=== PATIENT | male | born 1980 | race Caucasian/White ===

== ENCOUNTER 2016-10-12 15:23 | Emergency (ER) | payer OTHER ==
[~2016-10-12] VITALS: Wt 85.0 kg
[2016-10-12] MEDS ORDERED: OLAN15TA3 PO ×2 (16:00→16:01)
[2016-10-12] MEDS ORDERED: FLUO20CA38 PO (16:00)
--- NOTE | 2016-10-12 16:47 | ERD ---
ER Documentation Chief Complaint Date/Time DATE: 10/12/16 TIME: 16:32 Chief Complaint HERE FOR MEDICATION REFILL ON PSYCH MEDS. NO DISTRESS OR IDEATIONS HPI Patient is a 36-year-old male with a past medical history of bipolar and depression who presents to the ED with medication refill on Zyprexa and Prozac. He states that he ran out of his medications 2 weeks ago. He states that he called his psychiatrist and a clinic and they stated that they were unavailable for an appointment and he stated that is why he came to the ER for medication refill. He states that he has been on Prozac for over a year and Zyprexa for a couple months. He has no complaints today. He denies suicidal ideations or suicide plan. He denies hurting himself or hurting others. He denies hallucinations visual or auditory or homicidal ideations. Denies chest pain, cough, shortness of breath or difficulty breathing.. States that he is not using any IV or other drugs. States that last use of meth and marijuana was in August. Denies alcohol use. No other symptoms today. ROS All systems reviewed and are negative except as per history of present illness. Medications Home Meds Active Scripts Olanzapine* (Zyprexa*) 15 Mg Tablet, 10 MG PO DAILY, #30 TAB Prov:JANETTE ACOSTA PA-C 10/12/16 Fluoxetine Hcl* (Prozac*) 20 Mg Capsule, 20 MG PO DAILY for 30 Days, CAP Prov:JANETTE ACOSTA PA-C 10/12/16 Allergies Allergies: Coded Allergies: No Known Drug Allergy (Verified Allergy, Mild, 07/27/16) PMhx/Soc History of Surgery: No Anesthesia Reaction: No Hx Neurological Disorder: No Hx Respiratory Disorders: No Hx Cardiac Disorders: No Hx Psychiatric Problems: Yes (Bipolar, depression) Hx Miscellaneous Medical Probl: Yes (depression ) Hx Alcohol Use: Yes Hx Substance Use: Yes (Past history of meth) Hx Tobacco Use: Yes (Half a pack a day) Smoking Status: Current every day smoker Physical Exam Vitals Vital Signs Date Time Temp Pulse Resp B/P Pulse Ox O2 Delivery O2 Flow Rate FiO2 10/12/16 15:28 98.0 85 20 134/78 100 Physical Exam GENERAL: Well-developed, well-nourished male. Appears in no acute distress. HEAD: Normocephalic, atraumatic. EYES: Pupils are equally reactive bilaterally. EOMs grossly intact. No conjunctival erythema. ENT: Moist mucous membranes. No uvula deviation. No kissing tonsils. No exudates. NECK: Supple. No lymphadenopathy or thyromegaly. No meningismus. negative kernig. negative brudinski. LUNG: Clear to auscultation bilaterally. No rhonchi, wheezing, rales or coarse breath sounds. HEART: Regular rate and rhythm. No murmurs, rubs or gallops. NEUROLOGIC: Alert and oriented. Moving all four extremities. 5/5 strength in all extremities. Normal speech. Steady gait. SKIN: Normal color. Warm and dry. No rashes or lesions. Capillary refill < 2 seconds Procedures/MDM ER COURSE: I kept the patient and/or family informed of laboratory and diagnostic imaging results throughout the emergency room course. MEDICAL DECISION MAKING: This is a 36 year old male with a history of bipolar and depression who presents with medication refill . Vital signs were reviewed. Patient is afebrile. Patient is not hypoxic. I consulted with Dr. Nuñez regarding this patient who agrees with plan and can be treated outpatiently. Patient does not have suicidal ideations or plan. I have low suspicion for suicide, sepsis, or other emergent conditions, psychosis, drug-induced psychosis, decompensated psychiatric illness. Low suspicion for ACS, PE, AAA, dissection, DVT DISCHARGE: At this time, patient is stable for discharge and outpatient management with no new complaints during the ER course. Patient was sent home with refill for zyprexa and prozac. Patient will be discharged home with instructions to recheck for new or worsening symptoms such as fever, nausea, weakness, LOC and to follow up with primary care in the next 1-2 days. Patient was advised to return to the ER for any new or worsening symptoms. Plan was discussed and patient and/or family understands and agrees. Home instructions were given. Departure Diagnosis: Primary Impression: Encounter for medication refill Condition: Stable Patient Instructions: Taking Medicine Safely Referrals: NO PRIMARY,CARE PHYSICIAN Additional Instructions: Call your primary care doctor TOMORROW for an appointment during the next 1-2 days.See the doctor sooner or return here if your condition worsens before your appointment time. follow up with your psychiatrist for further evaluation. JANETTE ACOSTA PA-C Oct 12, 2016 16:42
== END 2016-10-12 16:05 | disposition home or self-care (01) ==
LOC: FTE 15:23
DX: Z76.0 Encounter for issue of repeat prescription (principal); F17.210 Nicotine dependence, cigarettes, uncomplicated
CPT/HCPCS: 99281

== ENCOUNTER → 2016-10-12 | Emergency (ER) | payer SELFPAY ==
[~2016-10-12] VITALS: Wt 80.0 kg
[~2016-10-12] MED LIST: FLUO20CA38 PO; OLAN15TA3 PO
== END | disposition left against medical advice (07) ==
LOC: FTE 11:57
DX: Z53.21 Procedure and treatment not carried out due to patient leaving prior to being seen by health care provider (principal)

== ENCOUNTER 2016-12-29 00:07 | Emergency (ER) | payer OTHER ==
[~2016-12-29] VITALS: Ht 185.4 cm; Wt 88.6 kg
[2016-12-29 00:17] VITALS: Ht 185.4 cm; Wt 88.6 kg
[2016-12-29] MEDS ORDERED: OLAN15TA3 PO (06:18)
[2016-12-29] MEDS ORDERED: FLUO20CA38 PO (06:18)
--- NOTE | 2016-12-29 08:41 | ERD ---
ER Documentation Chief Complaint Date/Time DATE: 12/29/16 TIME: 08:41 Chief Complaint MED REFILL ON ZYPREXA 15MG AND PROZAC HPI Patient is a 36-year-old male with a past medical history of bipolar and depression who presents to the ED asking for medication refill for Zyprexa and Prozac. Patient states that he has been on Zyprexa for many years and Prozac started on August. Patient states that he is unable to follow-up with his psychiatrist or primary care physician at this time he is working on it. Patient states that he ran out of his medication for Prozac 2 days ago. He denies any anxiety, suicidal ideation, homicidal ideation, chest pain or shortness of breath. He denies any drug use at this time. ROS All systems reviewed and are negative except as per history of present illness. Medications Home Meds Active Scripts Fluoxetine Hcl* (Prozac*) 20 Mg Capsule, 20 MG PO DAILY, #30 CAP Prov:FLASH SPARKS PA-C 12/29/16 Olanzapine* (Zyprexa*) 15 Mg Tablet, 15 MG PO DAILY, #30 TAB Prov:FLASH SPARKS PA-C 12/29/16 Olanzapine* (Zyprexa*) 15 Mg Tablet, 10 MG PO DAILY, #30 TAB Prov:JANETTE ACOSTA PA-C 10/12/16 Fluoxetine Hcl* (Prozac*) 20 Mg Capsule, 20 MG PO DAILY for 30 Days, CAP Prov:JANETTE ACOSTA PA-C 10/12/16 Allergies Allergies: Coded Allergies: No Known Drug Allergy (Verified Allergy, Mild, 12/29/16) PMhx/Soc History of Surgery: No (gall stones, ?choleocystectomy) Anesthesia Reaction: No Hx Neurological Disorder: No Hx Respiratory Disorders: No Hx Cardiac Disorders: No Hx Psychiatric Problems: Yes (Bipolar, depression) Hx Miscellaneous Medical Probl: Yes (depression ) Hx Alcohol Use: Yes (socially) Hx Substance Use: Yes (Past history of meth, marijuana) Hx Tobacco Use: Yes (Half a pack a day) Smoking Status: Current every day smoker Physical Exam Vitals Vital Signs Date Time Temp Pulse Resp B/P Pulse Ox O2 Delivery O2 Flow Rate FiO2 12/29/16 00:17 98.0 81 20 147/82 98 Physical Exam GENERAL: WD/WN, in no apparent distress, non-toxic appearing HENT: NC/AT EYES: Conjunctiva normal NECK: Supple. No meningeal signs PULM: Clear to auscultation bilaterally. Normal labored breathing CV: Regular rate and rhythm, no murmurs GI: Soft, non tender, non distended. Normal bowel sounds BACK: No masses EXT: No clubbing, cyanosis, or edema. NEURO: Awake and Alert SKIN: No petechiae or rashes PSYCH: Normal mood Procedures/MDM Patient is a 36-year-old male with a past medical history of bipolar and depression who presents to the ED asking for medication refill for Zyprexa and Prozac. Patient is unable to follow-up with his primary care physician or psychiatrist at this time. On examination patient did not exhibit any significant serotonin withdrawal symptoms, he has stable vital signs and he stable for discharge for home to follow-up with his primary care physician and psychiatrist as soon as he can. Prescription for Zyprexa 50 mg every day was refilled and Prozac 20 mg every day. Patient stable for discharge her home with precautions to return to the ER for any worsening symptoms. I have given him a lengthy discussion on the importance of following up with his physician. He understands and agrees with Departure Diagnosis: Primary Impression: Encounter for medication refill Additional Impression: Psychological disorder Condition: Stable Patient Instructions: Taking Medicine Safely Referrals: DOCTOR,NOT ON STAFF [facility]ENT C[facility]/SPECIALTIES Additional Instructions: FOLLOW UP WITH YOUR PRIMARY CARE PHYSICIAN TOMORROW.Return to this facility if you are not improving as expected. Take all medicines as directed. Return to this facility if you are not improving as expected. FLASH SPARKS PA-C December 29, 2016 08:41
== END 2016-12-29 06:33 | disposition home or self-care (01) ==
LOC: FTE 00:07
DX: Z76.0 Encounter for issue of repeat prescription (principal); F17.210 Nicotine dependence, cigarettes, uncomplicated; F99 Mental disorder, not otherwise specified
CPT/HCPCS: 99281

== ENCOUNTER 2017-03-26 23:58 | Emergency (ER) | payer OTHER ==
[~2017-03-26] VITALS: Ht 185.4 cm; Wt 85.0 kg
[2017-03-27 00:18] VITALS: Ht 185.4 cm; Wt 85.0 kg
[2017-03-27] MEDS ORDERED: OLANZAPINE (ODT) 5 MG TAB PO STA (01:06)
--- NOTE | 2017-03-27 01:26 | ERD ---
ER Documentation Chief Complaint Date/Time DATE: 03/27/17 TIME: 01:24 Chief Complaint BIBRA with [employer] for psych eval and possible 5150. HPI Patient is a 36-year-old male with history of bipolar disorder brought to the ER by police after having altercation with his mother. He was agitated and required restraint by police. The patient reports that he has been off of his medication for an unknown period of time. He states that he uses methamphetamine and cocaine at times, but denies recent use. He states that he is intermittently suicidal and homicidal. He denies hearing voices. He denies alcohol use or ingestion of medications today. He denies suicidal plan. ROS All systems reviewed and are negative except as per history of present illness. Medications Home Meds Discontinued Scripts Fluoxetine Hcl* (Prozac*) 20 Mg Capsule, 20 MG PO DAILY, #30 CAP Prov:FLASH SPARKS-C 12/29/16 Olanzapine* (Zyprexa*) 15 Mg Tablet, 15 MG PO DAILY, #30 TAB Prov:FLASH SPARKS-C 12/29/16 Olanzapine* (Zyprexa*) 15 Mg Tablet, 10 MG PO DAILY, #30 TAB Prov:JANETTE ACOSTA PA-C 10/12/16 Fluoxetine Hcl* (Prozac*) 20 Mg Capsule, 20 MG PO DAILY for 30 Days, CAP Prov:JANETTE ACOSTA PA-C 10/12/16 Allergies Allergies: Coded Allergies: No Known Drug Allergy (Unverified Allergy, Mild, 03/27/17) PMhx/Soc Past medical history: Bipolar disorder Past surgical history: Cholecystectomy Social history: Occasional methamphetamine use, smokes cigarettes, denies alcohol History of Surgery: No (gall stones, ?choleocystectomy) Anesthesia Reaction: No Hx Neurological Disorder: No Hx Respiratory Disorders: No Hx Cardiac Disorders: No Hx Psychiatric Problems: Yes (Bipolar, depression) Hx Miscellaneous Medical Probl: Yes (Psych) Hx Alcohol Use: Yes Hx Substance Use: Yes Hx Tobacco Use: Yes Smoking Status: Current some day smoker FmHx Family History: No coronary disease, No diabetes Physical Exam Vitals Vital Signs Date Time Temp Pulse Resp B/P Pulse Ox O2 Delivery O2 Flow Rate FiO2 03/27/17 05:00 70 16 110/63 97 Room Air 03/27/17 02:32 98.2 68 18 131/77 99 Room Air 03/27/17 00:18 98.6 65 18 137/78 99 Physical Exam Const: Alert, poorly communicative Head: Atraumatic Eyes: Normal Conjunctiva, no pallor, no icterus, no nystagmus ENT: Normal External Ears, Nose and Mouth. Mucous membranes moist Neck: Full range of motion..~ No meningismus. Resp: Clear to auscultation bilaterally Cardio: Regular rate and rhythm, no murmurs Abd: Soft, non tender, non distended. Normal bowel sounds Skin: No petechiae or rashes Back: No midline or flank tenderness Ext: No cyanosis, or edema Neur: Awake and alert, cranial nerves II through XII intact bilaterally, strength and sensation full in 4 extremities. Psych: Poor eye contact, poorly communicative, gives vague responses, calm Result Diagram: 03/27/173903/27/17 0040 Results 24 hrs Laboratory Tests Test 03/27/17 00:40 White Blood Count 9.210^3/ul Red Blood Count 5.0210^6/ul Hemoglobin 15.7g/dl Hematocrit 45.3% Mean Corpuscular Volume 90.2fl Mean Corpuscular Hemoglobin 31.3pg Mean Corpuscular Hemoglobin Concent 34.7g/dl Red Cell Distribution Width 12.1% Platelet Count 39051^3/UL Mean Platelet Volume 10.9fl Neutrophils % 53.2% Lymphocytes % 34.6% Monocytes % 8.6% Eosinophils % 2.6% Basophils % 0.7% Nucleated Red Blood Cells % 0.0/100WBC Neutrophils # (Manual) 510^3/ul Lymphocytes # 3.210^3/ul Monocytes # 0.810^3/ul Eosinophils # 0.210^3/ul Basophils # 0.110^3/ul Nucleated Red Blood Cells # 0.010^3/ul Sodium Level 140mmol/L Potassium Level 4.9mmol/L Chloride Level 107mmol/L Carbon Dioxide Level 21mmol/L Anion Gap 17 Blood Urea Nitrogen 14mg/dl Creatinine 0.93mg/dl Glucose Level 89mg/dl Calcium Level 9.4mg/dl Total Bilirubin 0.5mg/dl Direct Bilirubin 0.00mg/dl Indirect Bilirubin 0.5mg/dl Aspartate Amino Transf (AST/SGOT) 48IU/L Alanine Aminotransferase (ALT/SGPT) 40IU/L Alkaline Phosphatase 107IU/L Total Protein 7.7g/dl Albumin 4.6g/dl Globulin 3.10g/dl Albumin/Globulin Ratio 1.48 Salicylates Level < 1.0mg/dl Acetaminophen Level < 10.0ug/ml Ethyl Alcohol Level < 10.0mg/dl Current Medications Medications (Trade) Dose Ordered Sig/Felipa Route PRN Reason Start Time Stop Time Status Last Admin Dose Admin Olanzapine (Zyprexa Zydis) 10 mg ONCE STAT PO 03/27/17 01:06 03/27/17 01:08 DC 03/27/17 01:32 Calcium Carbonate 750 mg 750 mg ONCE ONCE PO 03/27/17 02:00 03/27/17 02:09 DC 03/27/17 02:16 Sodium Chloride (NS) 1,000 ml @ 1,000 mls/hr Q1H ONCE IV 03/27/17 05:30 03/27/17 06:29 DC 03/27/17 05:16 Procedures/MDM MDM: Patient is a 36-year-old male with bipolar disorder who has not been on medication and presents to the ER with agitation and signs of psychosis. He also reports suicidal ideation. There is no evidence of toxic ingestion. The patient has not yet provided urine for drug screen, but is medically cleared for psychiatric evaluation. He was given Zyprexa and remained calm overnight in the ER. Departure Diagnosis: Primary Impression: Bipolar disorder Active/Remission status: remission status unspecified Qualified Code: F31.9 - Bipolar affective disorder, remission status unspecified Additional Impression: Agitation Condition: DAREN Soriano MD Mar 27, 2017 01:26
[2017-03-27 01:36] LABS: BASOPHIL # 0.1 10^3/ul (0.0-0.1); BASOPHILS % 0.7 % (0.0-2.0); EOSINOPHILS # 0.2 10^3/ul (0.0-0.5); EOSINOPHILS % 2.6 % (0.0-7.0); HEMATOCRIT 45.3 % (42.0-52.0); HEMOGLOBIN 15.7 g/dl (14.0-18.0); LYMPHOCYTES # 3.2 10^3/ul (0.8-2.9); LYMPHOCYTES % 34.6 % (15.0-51.0); MEAN CORPUSCULAR HEMOGLOBIN 31.3 pg (29.0-33.0); MEAN CORPUSCULAR HGB CONC 34.7 g/dl (32.0-37.0); MEAN CORPUSCULAR VOLUME 90.2 fl (82.0-101.0); MONOCYTE # 0.8 10^3/ul (0.3-0.9); MONOCYTES % 8.6 % (0.0-11.0); NEUTROPHILS % 53.2 % (39.0-77.0); PLATELET COUNT 303 10^3/UL (140-415); RED BLOOD COUNT 5.02 10^6/ul (4.70-6.10); RED CELL DISTRIBUTION WIDTH 12.1 % (11.5-14.5); WHITE BLOOD COUNT 9.2 10^3/ul (4.8-10.8)
[2017-03-27 01:41] LABS: ALANINE AMINOTRANSFERASE 40 IU/L (13-69); ALBUMIN 4.6 g/dl (3.3-4.9); ALBUMIN/GLOBULIN RATIO 1.48; ALKALINE PHOSPHATASE 107 IU/L (42-121); ANION GAP 17 (8-16); ASPARTATE AMINO TRANSFERASE 48 IU/L (15-46); BILIRUBIN,INDIRECT 0.5 mg/dl (0-1.1); BILIRUBIN,TOTAL 0.5 mg/dl (0.2-1.3); BLOOD UREA NITROGEN 14 mg/dl (7-20); CALCIUM 9.4 mg/dl (8.4-10.2); CARBON DIOXIDE 21 mmol/L (21-31); CHLORIDE 107 mmol/L (97-110); CREATININE 0.93 mg/dl (0.61-1.24); GLUCOSE 89 mg/dl (70-220); POTASSIUM 4.9 mmol/L (3.5-5.1); SODIUM 140 mmol/L (135-144); TOTAL PROTEIN 7.7 g/dl (6.1-8.1)
[2017-03-27 01:42] LABS: ACETAMINOPHEN < 10.0 ug/ml (10.0-30.0)
[2017-03-27 01:43] LABS: ETHANOL < 10.0 mg/dl; SALICYLATE < 1.0 mg/dl (5.0-30.0)
[2017-03-27 01:49] LABS: MEAN PLATELET VOLUME 10.9 fl (7.4-10.4)
[2017-03-27] MEDS ORDERED: CALCIUM CARBONATE 750 MG CHEW TAB PO ONE (02:00)
[2017-03-27] MEDS ORDERED: SOD CHLORIDE 0.9% 1,000 ML IV ONE (05:30)
--- NOTE | 2017-03-27 07:59 | EN ---
Date/Time of Note Date/Time of Note DATE: 03/27/17 TIME: 07:58 ER Progress Note Observation Note: Time: [XOXOXO] hours Family Hx: No Hypertension Evaluation: Multiple exams showed improving symptoms and no evidence of [ XOXOXO] HERMINIO DEAN MD Mar 27, 2017 07:59
[2017-03-27 08:33] LABS: ADD UMIC NO; UR ASCORBIC ACID 20 mg/dL (NEGATIVE); UR BILIRUBIN (Dip) NEGATIVE (NEGATIVE); UR BLOOD (Dip) NEGATIVE (NEGATIVE); UR CLARITY CLEAR (CLEAR); UR COLOR YELLOW (YELLOW); UR GLUCOSE (Dip) NEGATIVE (NEGATIVE); UR KETONES (Dip) TRACE mg/dL (NEGATIVE); UR LEUKOCYTE ESTERASE (Dip) NEGATIVE Leu/ul (NEGATIVE); UR NITRITE (Dip) NEGATIVE (NEGATIVE); UR SPECIFIC GRAVITY (Dip) 1.019 (1.003-1.030); UR TOTAL PROTEIN (Dip) NEGATIVE (NEGATIVE); UR UROBILINOGEN (Dip) 1+ mg/dL (NEGATIVE)
[2017-03-27 08:57] LABS: CANNABINOIDS Negative (NEGATIVE)
[2017-03-27 09:00] LABS: BARBITURATES Negative (NEGATIVE); BENZODIAZEPINES Negative (NEGATIVE); COCAINE Negative (NEGATIVE); OPIATES Negative (NEGATIVE)
--- NOTE | 2017-03-27 14:59 | PSY ---
Date/Time of Note Date/Time of Note DATE: 03/27/17 TIME: 14:54 Psychiatric Subjective Eval Consent Pt consented to telemedicine: Yes Subjective Evaluation Patient location: emergency Chief Complaint: BIBRA with [employer] for psych eval and possible 5149. History of present illness Pt is 36 yo disabled male with hx schizoaffecetiv ed/o BIB police on 5150 because of a agitaiton and threatening bhx at home. Pt is a poor historian; he sas he is in ED because "they called ambulance" . He is not able to say, who are "they". he admits he was angry and started thowing things at his mother. he denies to me Si or HI, he denies AH or VH but he does appear internally preoccupied. he was on Zyprexa, but stopped his meds a month ago. He reprots insomnia and anxiety. He reprots feeling paranoid and unsafe. Past psychiatric history last inpt was 3 months for agitaiton Hospitalization: yes Family History denies Medical history Problems Medical Problems: (1) Agitation Status: Acute (2) Bipolar disorder Status: Acute (3) Depression Status: Acute (4) Encounter for medication refill Status: Acute (5) Encounter for medication refill Status: Acute (6) Psychological disorder Status: Acute (7) Psychosis Status: Acute (8) Substance abuse Status: Acute (9) Suicidal ideation Status: Acute Allergies: Coded Allergies: No Known Drug Allergy (Unverified Allergy, Mild, 03/27/17) Substance Abuse Substance use: No known substance abuse Social History Marital status: single Level of education: 9th grade DPA/Conservatorship: No Occupation/Snf: unemployed, lives with mother Psychiatric Objective Eval Mental Status Examination: Appearance: Disheveled Eye Contact: Poor Psychomotor Activity: Normal Behavior: Cooperative Speech: Clear AFFECT: Constricted Mood: Irritable Though Process: Circumstantial Thought Content: Delusions Suicidal: No Homicidal: No On 72 hour hold: No Orientation: x3 Cognition: Alert Insight: Impared Judgement: Impared Laboratory Results Laboratory Tests Test 03/27/17 00:40 03/27/17 08:05 White Blood Count 9.210^3/ul Red Blood Count 5.0210^6/ul Hemoglobin 15.7g/dl Hematocrit 45.3% Mean Corpuscular Volume 90.2fl Mean Corpuscular Hemoglobin 31.3pg Mean Corpuscular Hemoglobin Concent 34.7g/dl Red Cell Distribution Width 12.1% Platelet Count 67865^3/UL Mean Platelet Volume 10.9fl Neutrophils % 53.2% Lymphocytes % 34.6% Monocytes % 8.6% Eosinophils % 2.6% Basophils % 0.7% Nucleated Red Blood Cells % 0.0/100WBC Neutrophils # (Manual) 510^3/ul Lymphocytes # 3.210^3/ul Monocytes # 0.810^3/ul Eosinophils # 0.210^3/ul Basophils # 0.110^3/ul Nucleated Red Blood Cells # 0.010^3/ul Sodium Level 140mmol/L Potassium Level 4.9mmol/L Chloride Level 107mmol/L Carbon Dioxide Level 21mmol/L Anion Gap 17 Blood Urea Nitrogen 14mg/dl Creatinine 0.93mg/dl Glucose Level 89mg/dl Calcium Level 9.4mg/dl Total Bilirubin 0.5mg/dl Direct Bilirubin 0.00mg/dl Indirect Bilirubin 0.5mg/dl Aspartate Amino Transf (AST/SGOT) 48IU/L Alanine Aminotransferase (ALT/SGPT) 40IU/L Alkaline Phosphatase 107IU/L Total Protein 7.7g/dl Albumin 4.6g/dl Globulin 3.10g/dl Albumin/Globulin Ratio 1.48 Salicylates Level < 1.0mg/dl Acetaminophen Level < 10.0ug/ml Ethyl Alcohol Level < 10.0mg/dl Urine Color YELLOW Urine Clarity CLEAR Urine pH 5.0 Urine Specific [place] 1.019 Urine Ketones TRACEmg/dL Urine Nitrite NEGATIVEmg/dL Urine Bilirubin NEGATIVEmg/dL Urine Urobilinogen 1+mg/dL Urine Leukocyte Esterase NEGATIVELeu/ul Urine Hemoglobin NEGATIVEmg/dL Urine Glucose NEGATIVEmg/dL Urine Total Protein NEGATIVEmg/dl Urine Opiates Screen Negative Urine Barbiturates Negative Urine Amphetamines Screen Negative Urine Benzodiazepines Screen Negative Urine Cocaine Screen Negative Urine Cannabinoids Negative Assessment and Plan Assessment/Diagnosis [place] I: SCHIZOAFFECTIVE D/O [place] II: DEFERED [place] III: NAD [place] IV: MODERATE [place] V: GAF 25 Recommendation/Plan Medication Management D/W ED 7540 FOR DTO; TRANSFER TO INPT PSYCH. Psychotherapy DEFER TO INPT Follow-up/Disposition TRANSFER TO INPT. ZYPREXA ZYDIS 10 MG PO PRN Q 8 HRS AGITAITON+ BEANDRYL 50 MG PO PRN Q 8 HRS AGITAITON, EPS. 5150 Recommendation: Place JUDITH Worley MD Mar 27, 2017 14:59
[2017-03-27] MEDS ORDERED: OLAN5TAB5 PO (15:28)
--- NOTE | 2017-03-27 15:28 | QN ---
Documentation Comment This patient was evaluated by our psychiatric weaver [facility] [employer] who states this patient does not meet for help. The patient was discharged home with a prescription for Zyprexa 10 mg daily. The patient is denying homicidal suicidal ideation at this time NEAL WRIGHT DO Mar 27, 2017 15:28
[2017-03-27 15:40] VITALS: BP 118/65; PULSE 72; RESP 16; TEMP 98.1
== END 2017-03-27 15:40 | disposition home or self-care (01) ==
LOC: E/R 23:58
DX: F31.9 Bipolar disorder, unspecified (principal); F17.210 Nicotine dependence, cigarettes, uncomplicated; R40.2142 Coma scale, eyes open, spontaneous, at arrival to emergency department; R40.2252 Coma scale, best verbal response, oriented, at arrival to emergency department; R40.2362 Coma scale, best motor response, obeys commands, at arrival to emergency department
CPT/HCPCS: 36415; 80053; 80306; 80307; 81003; 85025; 96360; J7030; Z7502; Z7610

== ENCOUNTER 2017-07-07 20:40 | Emergency (ER) | payer OTHER ==
[~2017-07-07] VITALS: Ht 185.4 cm; Wt 90.9 kg
[~2017-07-07 20:40] MED LIST changes: -FLUO20CA38 PO; -OLAN15TA3 PO; +OLAN5TAB5 PO
[2017-07-07 20:44] VITALS: Ht 185.4 cm; Wt 90.9 kg
[2017-07-07] MEDS ORDERED: LORAZEPAM 2 MG INJ IM STA (20:44)
[2017-07-07] MEDS ORDERED: HALOPERIDOL 5 MG INJ IM ONE (21:00)
[2017-07-07 22:02] LABS: BASOPHIL # 0.1 10^3/ul (0.0-0.1); BASOPHILS % 0.5 % (0.0-2.0); EOSINOPHILS # 0.1 10^3/ul (0.0-0.5); EOSINOPHILS % 0.8 % (0.0-7.0); HEMATOCRIT 43.1 % (42.0-52.0); HEMOGLOBIN 15.2 g/dl (14.0-18.0); LYMPHOCYTES # 2.1 10^3/ul (0.8-2.9); LYMPHOCYTES % 16.6 % (15.0-51.0); MEAN CORPUSCULAR HGB CONC 35.3 g/dl (32.0-37.0); MEAN PLATELET VOLUME 8.6 fl (7.4-10.4); MONOCYTES % 8.1 % (0.0-11.0); NEUTROPHILS % 73.1 % (39.0-77.0); PLATELET COUNT 383 10^3/UL (140-415); RED CELL DISTRIBUTION WIDTH 12.3 % (11.5-14.5); WHITE BLOOD COUNT 12.4 10^3/ul (4.8-10.8)
[2017-07-07 22:29] LABS: ACETAMINOPHEN < 10.0 ug/ml (10.0-30.0); ALANINE AMINOTRANSFERASE 41 IU/L (13-69); ALBUMIN 4.6 g/dl (3.3-4.9); ALBUMIN/GLOBULIN RATIO 1.53; ALKALINE PHOSPHATASE 89 IU/L (42-121); ANION GAP 18 (8-16); ASPARTATE AMINO TRANSFERASE 26 IU/L (15-46); BILIRUBIN,INDIRECT 0.3 mg/dl (0-1.1); BILIRUBIN,TOTAL 0.3 mg/dl (0.2-1.3); BLOOD UREA NITROGEN 10 mg/dl (7-20); CALCIUM 9.8 mg/dl (8.4-10.2); CARBON DIOXIDE 24 mmol/L (21-31); CHLORIDE 104 mmol/L (97-110); CREATININE 0.95 mg/dl (0.61-1.24); ETHANOL < 10.0 mg/dl; GLUCOSE 99 mg/dl (70-220); POTASSIUM 4.4 mmol/L (3.5-5.1); SALICYLATE < 1.0 mg/dl (5.0-30.0); SODIUM 142 mmol/L (135-144); TOTAL PROTEIN 7.6 g/dl (6.1-8.1)
--- NOTE | 2017-07-07 23:19 | ERD ---
ER Documentation Chief Complaint Chief Complaint BIBA RA881 HPI This is a 37-year-old male with history of depression, and schizophrenia who presents to the emergency room after being brought in by ambulance for evaluation of agitation. The patient states that he did get an argument with his mother and states that he is feeling extremely agitated. He is not answering whether or not he is suicidal at this time. He is yelling in a detailed history is unobtainable from this patient given his agitation at this time ROS All systems reviewed and are negative except as per history of present illness. Medications Home Meds Discontinued Scripts Olanzapine* (Zyprexa*) 5 Mg Tablet, 5 MG PO DAILY, #14 TAB Prov:NEAL WRIGHT 03/27/17 Allergies Allergies: Coded Allergies: No Known Drug Allergy (Unverified Allergy, Mild, 07/07/17) PMhx/Soc History of Surgery: No (gall stones, ?choleocystectomy) Anesthesia Reaction: No Hx Neurological Disorder: No Hx Respiratory Disorders: No Hx Cardiac Disorders: No Hx Psychiatric Problems: Yes (Bipolar, depression) Hx Miscellaneous Medical Probl: Yes (Psych) Hx Alcohol Use: Yes Hx Substance Use: Yes Hx Tobacco Use: Yes Physical Exam Vitals Vital Signs Date Time Temp Pulse Resp B/P Pulse Ox O2 Delivery O2 Flow Rate FiO2 07/07/17 20:44 97.5 86 18 144/98 95 Physical Exam INITIAL VITAL SIGNS: Reviewed by me GENERAL: The patient is well developed, yelling in the emergency room HEENT: Pupils equal, round, and reactive to light. EOMI. There is no scleral icterus. NECK: C-spine is soft and supple, there is no meningismus. There is no cervical lymphadenopathy. LUNGS: Clear to auscultation bilaterally. There are no rales, wheezes or rhonchi. HEART: Regular rate and rhythm, no murmurs, clicks, rubs or gallops. ABDOMEN: Soft, non-tender, non-distended. There are bowel sounds in all four quadrants. No rebound or guarding. EXTREMITIES: There is no peripheral cyanosis or edema. No focal swelling or erythema. NEUROLOGICAL: The patient moves all four extremities with 5/5 strength. Cranial nerves II - XII are intact. Normal gait. Alert and oriented SKIN: There is no apparent rash or petechiae. HEME/LYMPHATIC: There is no evidence of excessive bruising or lymphedema. PSYCHIATRIC: The patient is to be extremely agitated Result Diagram: 07/07/17215107/07/172151 Results 24 hrs Laboratory Tests Test 07/07/17 21:52 White Blood Count 12.410^3/ul Red Blood Count 4.9010^6/ul Hemoglobin 15.2g/dl Hematocrit 43.1% Mean Corpuscular Volume 88.0fl Mean Corpuscular Hemoglobin 31.0pg Mean Corpuscular Hemoglobin Concent 35.3g/dl Red Cell Distribution Width 12.3% Platelet Count 48527^3/UL Mean Platelet Volume 8.6fl Neutrophils % 73.1% Lymphocytes % 16.6% Monocytes % 8.1% Eosinophils % 0.8% Basophils % 0.5% Nucleated Red Blood Cells % 0.0/100WBC Neutrophils # 9.010^3/ul Lymphocytes # 2.110^3/ul Monocytes # 1.010^3/ul Eosinophils # 0.110^3/ul Basophils # 0.110^3/ul Nucleated Red Blood Cells # 0.010^3/ul Sodium Level 142mmol/L Potassium Level 4.4mmol/L Chloride Level 104mmol/L Carbon Dioxide Level 24mmol/L Anion Gap 18 Blood Urea Nitrogen 10mg/dl Creatinine 0.95mg/dl Glucose Level 99mg/dl Calcium Level 9.8mg/dl Total Bilirubin 0.3mg/dl Direct Bilirubin 0.00mg/dl Indirect Bilirubin 0.3mg/dl Aspartate Amino Transf (AST/SGOT) 26IU/L Alanine Aminotransferase (ALT/SGPT) 41IU/L Alkaline Phosphatase 89IU/L Total Protein 7.6g/dl Albumin 4.6g/dl Globulin 3.00g/dl Albumin/Globulin Ratio 1.53 Salicylates Level < 1.0mg/dl Acetaminophen Level < 10.0ug/ml Ethyl Alcohol Level < 10.0mg/dl Current Medications Medications (Trade) Dose Ordered Sig/Felipa Route PRN Reason Start Time Stop Time Status Last Admin Dose Admin Lorazepam (Ativan) 2 mg ONCE STAT IM 07/07/17 20:44 07/07/17 20:47 DC 07/07/17 21:07 Haloperidol (Haldol) 5 mg ONCE ONCE IM 07/07/17 21:00 07/07/17 21:01 DC 07/07/17 21:07 Procedures/MDM This 37-year-old male presents to the ER for evaluation of agitation. He does have a history of schizophrenia and depression. He was not cooperative and had to be chemically sedated with Haldol and Ativan. This patient's lab work is within normal limits at this time. He will be evaluated by tele-psych physician when he is arousable to determine whether or not this patient needs inpatient psychiatric evaluation. Departure Diagnosis: Primary Impression: Agitation Additional Impression: Psychological disorder Condition: Stable NEAL WRIGHT DO Jul 07, 2017 23:19
--- NOTE | 2017-07-08 05:25 | EN ---
Date/Time of Note Date/Time of Note DATE: 07/08/17 TIME: 05:23 ER Progress Note Indication: Agitation Duration: 4 hr Family History: As documented in the original HPI The patient was observed with serial exams over the above timeframe. The patient continued to be well-appearing and observation continued without complication. All other needs have been met during emergency department stay. The patient is medically cleared for psychiatric evaluation CHELLE LEIJA MD Jul 08, 2017 05:25
[2017-07-08 05:34] VITALS: BP 128/78; PULSE 87; RESP 18; TEMP 98.7
--- NOTE | 2017-07-08 06:41 | PSY ---
Date/Time of Note Date/Time of Note DATE: 07/08/17 TIME: 06:23 Psychiatric Subjective Eval Consent Pt consented to telemedicine: Yes Subjective Evaluation Patient location: emergency Chief Complaint: PATEL LUGO Reason for consult: agitated History of present illness patient is a 37 yo male with PPH Of schizophrenia and methamphetamine abuse who came to the ER brought in by RA due to being agitated at home due to having a argument with his mother, he states that he was discharged from the psychiatric unit 2 days ago where he was admitted for agitated behavior, he states that he was having a argument with his mother because she"is a old lady and she does not understand me ", i tried to talk to her on the phone to know more about what happened at home and to know if she felt safe to have him home but she did not answer the phone ([phone]) he states that he does not want to argue with her anymore and he wants to go home but he understands that we have to call her first to find out if she is ok with him going home. he denies any current si or hi, no current hallucination or delusion, he states that he got drunk 2 days ago and used methamphetamine. he has been feeling depressed and anxious, with problem sleeping and did not take his medication for the past 2 days. Past psychiatric history no past suicidal attempt Family History denies Medical history Problems Medical Problems: (1) Agitation Status: Acute (2) Bipolar disorder Status: Acute (3) Depression Status: Acute (4) Encounter for medication refill Status: Acute (5) Encounter for medication refill Status: Acute (6) Psychological disorder Status: Acute (7) Psychosis Status: Acute (8) Substance abuse Status: Acute (9) Suicidal ideation Status: Acute Allergies: Coded Allergies: No Known Drug Allergy (Unverified Allergy, Mild, 07/07/17) Substance Abuse Substance abuse history: Yes (methamphetamine ) Prior substance abuse treatmen: No Social History Marital status: single Level of education: hs DPA/Conservatorship: No Occupation/Mcfp: no Psychiatric Objective Eval Review of Systems: Review of Systems: Not Applicable Physical Examination: Physical Examination: Applicable Sleep: Insomnia Appetite: Decreased Energy: Decreased Interest: Decreased Mental Status Examination: Appearance: Disheveled Eye Contact: Fair Psychomotor Activity: Normal Behavior: Cooperative Speech: Clear AFFECT: Appropriate Mood: Irritable Though Process: Linear Thought Content: Normal Suicidal: No Homicidal: No On 72 hour hold: No Orientation: x3 Cognition: Alert Insight: Mild Judgement: Mild Attention Span: Intact Laboratory Results Laboratory Tests Test 07/07/17 21:52 White Blood Count 12.410^3/ul Red Blood Count 4.9010^6/ul Hemoglobin 15.2g/dl Hematocrit 43.1% Mean Corpuscular Volume 88.0fl Mean Corpuscular Hemoglobin 31.0pg Mean Corpuscular Hemoglobin Concent 35.3g/dl Red Cell Distribution Width 12.3% Platelet Count 83678^3/UL Mean Platelet Volume 8.6fl Neutrophils % 73.1% Lymphocytes % 16.6% Monocytes % 8.1% Eosinophils % 0.8% Basophils % 0.5% Nucleated Red Blood Cells % 0.0/100WBC Neutrophils # 9.010^3/ul Lymphocytes # 2.110^3/ul Monocytes # 1.010^3/ul Eosinophils # 0.110^3/ul Basophils # 0.110^3/ul Nucleated Red Blood Cells # 0.010^3/ul Sodium Level 142mmol/L Potassium Level 4.4mmol/L Chloride Level 104mmol/L Carbon Dioxide Level 24mmol/L Anion Gap 18 Blood Urea Nitrogen 10mg/dl Creatinine 0.95mg/dl Glucose Level 99mg/dl Calcium Level 9.8mg/dl Total Bilirubin 0.3mg/dl Direct Bilirubin 0.00mg/dl Indirect Bilirubin 0.3mg/dl Aspartate Amino Transf (AST/SGOT) 26IU/L Alanine Aminotransferase (ALT/SGPT) 41IU/L Alkaline Phosphatase 89IU/L Total Protein 7.6g/dl Albumin 4.6g/dl Globulin 3.00g/dl Albumin/Globulin Ratio 1.53 Salicylates Level < 1.0mg/dl Acetaminophen Level < 10.0ug/ml Ethyl Alcohol Level < 10.0mg/dl Assessment and Plan Assessment/Diagnosis [place] I: schizophrenia per hx [place] II: deferred [place] III: as per record [place] IV: unemployed [place] V: gaf 64 Recommendation/Plan Follow-up/Disposition patient can be discharged once his mother has been called and feel safe to have him back home In my opinion,for this patient, outpatient care is the least restrictive option. Based on available evidence, ~this condition CAN be safely treated at a lower level of care effective today. Patient is stable without ~clear and convincing evidence of imminent danger due to mental illness that requires acute inpatient psychiatric ~care as the least restrictive alternative. Please discharge patient with referral for follow up to a outpatient mental health clinic for psychotherapy and medication. ZORAIDA RONDON MD Jul 08, 2017 06:34
[2017-07-08] MEDS ORDERED: OLAN5TAB5 PO (06:56)
[2017-07-08] MEDS ORDERED: RISP2TAB3 PO (06:56)
== END 2017-07-08 08:47 | disposition home or self-care (01) ==
LOC: E/R 20:40
DX: R45.1 Restlessness and agitation (principal); F99 Mental disorder, not otherwise specified; Z87.891 Personal history of nicotine dependence
CPT/HCPCS: 80053; 80306; 85025; 96372; J1630; J2060; Z7502

== ENCOUNTER 2017-07-24 17:33 | Emergency (ER) | payer OTHER ==
[~2017-07-24] VITALS: Ht 177.8 cm; Wt 80.0 kg
[~2017-07-24 17:33] MED LIST changes: +RISP2TAB3 PO
[2017-07-24 17:45] VITALS: Ht 177.8 cm; Wt 80.0 kg
[2017-07-24] MEDS ORDERED: OLANZAPINE (ODT) 5 MG TAB ODT ONE (18:00)
[2017-07-24] MEDS ORDERED: LORAZEPAM 2 MG INJ IM STA (18:19)
[2017-07-24] MEDS ORDERED: HALOPERIDOL 5 MG INJ IM STA (18:19)
[2017-07-24 19:29] LABS: BASOPHIL # 0.1 10^3/ul (0.0-0.1); BASOPHILS % 0.5 % (0.0-2.0); EOSINOPHILS # 0.3 10^3/ul (0.0-0.5); HEMATOCRIT 45.8 % (42.0-52.0); LYMPHOCYTES # 2.8 10^3/ul (0.8-2.9); MEAN CORPUSCULAR HEMOGLOBIN 30.7 pg (29.0-33.0); MEAN CORPUSCULAR HGB CONC 34.9 g/dl (32.0-37.0); MEAN CORPUSCULAR VOLUME 87.7 fl (82.0-101.0); MEAN PLATELET VOLUME 8.7 fl (7.4-10.4); MONOCYTES % 7.7 % (0.0-11.0); NEUTROPHIL # 8.2 10^3/ul (1.6-7.5); NEUTROPHILS % 66.2 % (39.0-77.0); PLATELET COUNT 464 10^3/UL (140-415); RED BLOOD COUNT 5.22 10^6/ul (4.70-6.10); RED CELL DISTRIBUTION WIDTH 12.3 % (11.5-14.5); WHITE BLOOD COUNT 12.4 10^3/ul (4.8-10.8)
[2017-07-24 19:54] LABS: ALANINE AMINOTRANSFERASE 47 IU/L (13-69); ALBUMIN 4.2 g/dl (3.3-4.9); ALBUMIN/GLOBULIN RATIO 1.35; ALKALINE PHOSPHATASE 85 IU/L (42-121); ANION GAP 16 (8-16); ASPARTATE AMINO TRANSFERASE 23 IU/L (15-46); BILIRUBIN,INDIRECT 0.5 mg/dl (0-1.1); BILIRUBIN,TOTAL 0.5 mg/dl (0.2-1.3); BLOOD UREA NITROGEN 17 mg/dl (7-20); CALCIUM 9.1 mg/dl (8.4-10.2); CARBON DIOXIDE 24 mmol/L (21-31); CHLORIDE 105 mmol/L (97-110); CREATININE 0.92 mg/dl (0.61-1.24); GLUCOSE 94 mg/dl (70-220); POTASSIUM 4.1 mmol/L (3.5-5.1); SODIUM 141 mmol/L (135-144); TOTAL PROTEIN 7.3 g/dl (6.1-8.1)
[2017-07-24 20:01] LABS: ACETAMINOPHEN < 10.0 ug/ml (10.0-30.0); ETHANOL < 10.0 mg/dl; SALICYLATE < 1.0 mg/dl (5.0-30.0)
--- NOTE | 2017-07-24 20:46 | PSY ---
Date/Time of Note Date/Time of Note DATE: 07/24/17 TIME: 23:39 Psychiatric Subjective Eval Consent Pt consented to telemedicine: Yes Subjective Evaluation Patient location: emergency Chief Complaint: Agitation History of present illness HPI: 37 yo male with ho bipolar disorder (per notes), bib police [id number]. Per nurses report, pt was visiting with son (he apparently does not have custody) and he would not allow son to leave, held on to him and became agitated. Someone called 911 and pt was brought to Ed. in handcuffs. MD asked pt what happened and he denied any problems or knowing why he was in ED. When MD told pt was MD was told, pt reports he only became agitated because of what police did (but was vague about what they did). Initially pt also denied a psych hx then admitted to 5150 several times.MD asked pt if he has SI and he said to MD that "after what happened today I would think of that." When MD then suggested pt obtain psych admit he said he does not want to be admitted and wants to go home and does not feel suicidal. When MD told pt he just told MD that he would feel suicidal pt denied that was the case and indicated that he did nto mean it. Past Psych Hx: several past 5150 per pt, denies suicide attempts, denies knowing his psych condition PMHx: denies All: when MD asked pt said "I Just ate somethign and it did not cause any allergies" and would not otherwise share MSE: oppositional, evasive, vague, contradictory, admitted Si then denied, poor judgment, insight, reliability, impulse control Imp: 37 yo male with ho bipolar disorder. MSE was marked by evasiveness and contradictory statements. However, given the severity of his agitation with police and aggression towards son, as well as admitting to SI in context of today, it would not, at this time, be safe to discharge pt, due to acute danger to self and grave disability -would recommend parallel hx from family/outpatient MD to understand pt's baseline -5150 until then, may need psych admit utox zyprexa 5mg po prn moderate agitation for severe agitation chlorpromazine 25mg im prn Medical history Problems Medical Problems: (1) Agitation Status: Acute (2) Bipolar disorder Status: Acute (3) Depression Status: Acute (4) Encounter for medication refill Status: Acute (5) Encounter for medication refill Status: Acute (6) Psychological disorder Status: Acute (7) Psychosis Status: Acute (8) Substance abuse Status: Acute (9) Suicidal ideation Status: Acute Allergies: Coded Allergies: No Known Drug Allergy (Unverified Allergy, Mild, 07/08/17) Psychiatric Objective Eval Mental Status Examination: Laboratory Results Laboratory Tests Test 07/24/17 19:15 White Blood Count 12.410^3/ul Red Blood Count 5.2210^6/ul Hemoglobin 16.0g/dl Hematocrit 45.8% Mean Corpuscular Volume 87.7fl Mean Corpuscular Hemoglobin 30.7pg Mean Corpuscular Hemoglobin Concent 34.9g/dl Red Cell Distribution Width 12.3% Platelet Count 42365^3/UL Mean Platelet Volume 8.7fl Neutrophils % 66.2% Lymphocytes % 23.0% Monocytes % 7.7% Eosinophils % 2.0% Basophils % 0.5% Nucleated Red Blood Cells % 0.0/100WBC Neutrophils # 8.210^3/ul Lymphocytes # 2.810^3/ul Monocytes # 1.010^3/ul Eosinophils # 0.310^3/ul Basophils # 0.110^3/ul Nucleated Red Blood Cells # 0.010^3/ul Sodium Level 141mmol/L Potassium Level 4.1mmol/L Chloride Level 105mmol/L Carbon Dioxide Level 24mmol/L Anion Gap 16 Blood Urea Nitrogen 17mg/dl Creatinine 0.92mg/dl Glucose Level 94mg/dl Calcium Level 9.1mg/dl Total Bilirubin 0.5mg/dl Direct Bilirubin 0.00mg/dl Indirect Bilirubin 0.5mg/dl Aspartate Amino Transf (AST/SGOT) 23IU/L Alanine Aminotransferase (ALT/SGPT) 47IU/L Alkaline Phosphatase 85IU/L Total Protein 7.3g/dl Albumin 4.2g/dl Globulin 3.10g/dl Albumin/Globulin Ratio 1.35 Salicylates Level < 1.0mg/dl Acetaminophen Level < 10.0ug/ml Ethyl Alcohol Level < 10.0mg/dl EFRAIN GARCIA Jul 24, 2017 20:46
[2017-07-24 21:19] LABS: ADD UMIC NO; UR ASCORBIC ACID 40 mg/dL (NEGATIVE); UR BILIRUBIN (Dip) NEGATIVE (NEGATIVE); UR BLOOD (Dip) NEGATIVE (NEGATIVE); UR CLARITY CLEAR (CLEAR); UR COLOR YELLOW (YELLOW); UR GLUCOSE (Dip) NEGATIVE (NEGATIVE); UR KETONES (Dip) NEGATIVE (NEGATIVE); UR LEUKOCYTE ESTERASE (Dip) NEGATIVE Leu/ul (NEGATIVE); UR NITRITE (Dip) NEGATIVE (NEGATIVE); UR SPECIFIC GRAVITY (Dip) 1.026 (1.003-1.030); UR TOTAL PROTEIN (Dip) NEGATIVE (NEGATIVE); UR UROBILINOGEN (Dip) 1+ mg/dL (NEGATIVE)
--- NOTE | 2017-07-24 21:38 | ERD ---
ER Documentation Chief Complaint Chief Complaint Agitation HPI Patient is a 37-year-old male with bipolar disorder who presents with agitation. Please note the history and physical exam is limited as the patient is not answering questions for me at this time. He was brought in by ambulance and police. Rested with his child per the paramedics and police. He was agitated and loud. He is not going to be under arrest however but he was threatening his sister who was not there. He does not remember the name of his primary doctor and he does not have a psychiatrist. He said that he did not take his psychiatric medicines today. ROS All systems reviewed and are negative except as per history of present illness. Medications Home Meds Reported Medications Olanzapine* (Zyprexa*) 5 Mg Tablet, 5 MG PO DAILY, #30 TAB 07/08/17 Risperidone* (Risperidone*) 2 Mg Tablet, 2 MG PO BID, TAB 07/08/17 Allergies Allergies: Coded Allergies: No Known Drug Allergy (Unverified Allergy, Mild, 07/08/17) PMhx/Soc History of Surgery: No (gall stones, ?choleocystectomy) Anesthesia Reaction: No Hx Neurological Disorder: No Hx Respiratory Disorders: No Hx Cardiac Disorders: No Hx Psychiatric Problems: Yes (Bipolar, depression) Hx Miscellaneous Medical Probl: Yes (Psych) Hx Alcohol Use: Yes Hx Substance Use: Yes Hx Tobacco Use: Yes Smoking Status: Light tobacco smoker FmHx Family History: diabetes Physical Exam Vitals Vital Signs Date Time Temp Pulse Resp B/P Pulse Ox O2 Delivery O2 Flow Rate FiO2 07/24/17 17:45 97.9 84 16 127/78 98 Physical Exam Const: Agitated Head: Atraumatic Eyes: Normal Conjunctiva ENT: Normal External Ears, Nose and Mouth. Neck: Full range of motion..~ No meningismus. Resp: Clear to auscultation bilaterally Cardio: Regular rate and rhythm, no murmurs Abd: Soft, non tender, non distended. Normal bowel sounds Skin: No petechiae or rashes Back: No midline or flank tenderness Ext: No cyanosis, or edema Neur: Awake and alert Psych: Agitated and evasive with answering questions, initially denied suicidal ideation Result Diagram: 07/24/17191407/24/171914 Results 24 hrs Laboratory Tests Test 07/24/17 19:15 12/16/17 19:20 White Blood Count 12.410^3/ul Red Blood Count 5.2210^6/ul Hemoglobin 16.0g/dl Hematocrit 45.8% Mean Corpuscular Volume 87.7fl Mean Corpuscular Hemoglobin 30.7pg Mean Corpuscular Hemoglobin Concent 34.9g/dl Red Cell Distribution Width 12.3% Platelet Count 87090^3/UL Mean Platelet Volume 8.7fl Neutrophils % 66.2% Lymphocytes % 23.0% Monocytes % 7.7% Eosinophils % 2.0% Basophils % 0.5% Nucleated Red Blood Cells % 0.0/100WBC Neutrophils # 8.210^3/ul Lymphocytes # 2.810^3/ul Monocytes # 1.010^3/ul Eosinophils # 0.310^3/ul Basophils # 0.110^3/ul Nucleated Red Blood Cells # 0.010^3/ul Sodium Level 141mmol/L Potassium Level 4.1mmol/L Chloride Level 105mmol/L Carbon Dioxide Level 24mmol/L Anion Gap 16 Blood Urea Nitrogen 17mg/dl Creatinine 0.92mg/dl Glucose Level 94mg/dl Calcium Level 9.1mg/dl Total Bilirubin 0.5mg/dl Direct Bilirubin 0.00mg/dl Indirect Bilirubin 0.5mg/dl Aspartate Amino Transf (AST/SGOT) 23IU/L Alanine Aminotransferase (ALT/SGPT) 47IU/L Alkaline Phosphatase 85IU/L Total Protein 7.3g/dl Albumin 4.2g/dl Globulin 3.10g/dl Albumin/Globulin Ratio 1.35 Salicylates Level < 1.0mg/dl Acetaminophen Level < 10.0ug/ml Ethyl Alcohol Level < 10.0mg/dl Urine Color YELLOW Urine Clarity CLEAR Urine pH 5.0 Urine Specific [place] 1.026 Urine Ketones NEGATIVEmg/dL Urine Nitrite NEGATIVEmg/dL Urine Bilirubin NEGATIVEmg/dL Urine Urobilinogen 1+mg/dL Urine Leukocyte Esterase NEGATIVELeu/ul Urine Hemoglobin NEGATIVEmg/dL Urine Glucose NEGATIVEmg/dL Urine Total Protein NEGATIVEmg/dl Current Medications Medications (Trade) Dose Ordered Sig/Felipa Route PRN Reason Start Time Stop Time Status Last Admin Dose Admin Olanzapine (Zyprexa Zydis) 5 mg ONCE ONCE ODT 07/24/17 18:00 07/24/17 18:01 DC Lorazepam (Ativan) 2 mg ONCE STAT IM 07/24/17 18:19 07/24/17 18:20 DC Haloperidol (Haldol) 10 mg ONCE STAT IM 07/24/17 18:19 07/24/17 18:20 DC Procedures/MDM Patient is a 37-year-old male presents with what appears to be acute psychosis. He was agitated with paramedics and police and was refusing to answer questions. He was medically cleared with laboratory studies. He was seen by psychiatry who recommended a 5150 hold. He was given Haldol and Ativan to protect himself and our staff. I will also order Zyprexa 5 mg daily while he is in the emergency department. We are attempting to find a psychiatric facility for placement at this time. Critical Care: Time: 35 minutes excluding all billable procedures. Treatments/Evaluations: Close monitoring and treatment of unstable vital signs, cardiorespiratory, and neurologic status, while maintaining tight balance of fluid, respiratory, and cardiac interventions. Departure Diagnosis: Primary Impression: Bipolar disorder Active/Remission status: currently active Current bipolar episode type: mixed Current episode severity: unspecified Qualified Code: F31.60 - Bipolar affective disorder, current episode mixed, current episode severity unspecified Additional Impression: Restlessness and agitation Condition: Fair Patient Instructions: Bipolar Disorder Additional Instructions: Call your primary care doctor TOMORROW for an appointment during the next 1-2 days.See the doctor sooner or return here if your condition worsens before your appointment time. LITO ZUNIGA MD Jul 24, 2017 21:38
[2017-07-24 21:41] LABS: CANNABINOIDS Positive (NEGATIVE)
[2017-07-24 21:42] LABS: BARBITURATES Negative (NEGATIVE); BENZODIAZEPINES Negative (NEGATIVE); COCAINE Negative (NEGATIVE); OPIATES Negative (NEGATIVE)
[2017-07-25 02:30] VITALS: BP 127/67; PULSE 65; RESP 20; TEMP 97.8
[2017-07-25] MEDS ORDERED: OLANZAPINE (ODT) 5 MG TAB ODT SCH (09:00)
== END 2017-07-25 02:40 ==
LOC: E/R 17:33
DX: F31.60 Bipolar disorder, current episode mixed, unspecified (principal); F17.210 Nicotine dependence, cigarettes, uncomplicated
CPT/HCPCS: 80053; 80306; 80307; 81003; 85025; 96372; J2060; Z7502; Z7610